=== PATIENT | male | born 1995 | race Caucasian/White ===

== ENCOUNTER 2016-06-18 11:22 | Emergency (ER) | payer SELFPAY ==
[~2016-06-18] VITALS: Ht 167.6 cm; Wt 65.0 kg
[~2016-06-18 11:22] MED LIST: DSS100 PO; OXYC-158 PO
[2016-06-18] MEDS ORDERED: OLAN10TA3 PO (12:03)
[2016-06-18 13:48] LABS: ADD UA MICROSCOPIC NO; APPEARANCE,URINE CLEAR (CLEAR); GLUCOSE, URINE (UA) NEGATIVE (NEGATIVE); KETONES,URINE NEGATIVE (NEGATIVE); LEUKOCYTE ESTERASE ,URINE NEGATIVE (NEGATIVE); OCCULT BLOOD,URINE NEGATIVE (NEGATIVE); PH,URINE 6.5 (5.0-8.0); PROTEIN,URINE NEGATIVE (NEGATIVE)
[2016-06-18 15:17] VITALS: BP 153/91
[2016-06-19 22:10] LABS: GC DNA N.A. AMPLIFY Negative (Negative)
== END 2016-06-18 15:44 | disposition home or self-care (01) ==
LOC: EMS 11:23
DX: N48.33 Priapism, drug-induced (principal); F17.210 Nicotine dependence, cigarettes, uncomplicated
CPT/HCPCS: 87491; 87591; 99284